=== PATIENT | male | born 1935 | race Caucasian/White ===

== ENCOUNTER 2019-10-30 13:09 | Inpatient (IN) | payer MEDICARE, MEDICAID, SELFPAY ==
[2019-10-30] VITALS (8 sets, daily range): BP systolic 106–143; BP diastolic 57–91; PULSE 90–112; RESP 18–24; TEMP 37.3–37.5; O2SAT 28–100; BMI 30.7
--- NOTE | ~2019-10-30 | XR_ITS ---
EXAMINATION: XR chest 2V DATE: 11/02/2019 15:40 INDICATION: Shortness of breath TECHNIQUE: AP and lateral views of the chest are obtained. COMPARISON: 11/18/2018 FINDINGS: There is chronic atelectasis and scarring in the lower lung zones. Minimal superimposed air space opacity is seen in the mid and lower lung zones. There is no pleural effusion or pneumothorax. The heart size is normal. 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 IMPRESSION: 1. Minimal airspace opacity of the mid and lower lung zones, consistent with atelectasis versus pneum onia. Reviewed, dictated and finalized at location A. IMPRESSION: 1. Minimal airspace opacity of the mid and lower lung zones, consistent with at electasis versus pneumonia.
--- NOTE | 2019-10-30 13:23 | ED.MALEGU ---
HPI - Male Genitourinary General Chief complaint: Urogenital-Male Stated complaint: pain in groin Time Seen by Provider: 10/30/19 13:19 Source: patient and RN notes reviewed Mode of arrival: EMS Limitations: no limitations History of Present Illness HPI Narrative: Pt is a 84 y/o male who presents to the ED via EMS from [facility] with c/o Roberts catheter complications starting 2 days ago. He notes that he has had a chronic Roberts catheter in place for roughly the past 6 years. Pt states that he last had his catheter replaced 5 weeks ago. He notes that he developed suprapubic pain 2 days ago, and states that his Roberts catheter is clogged. Pt denies any fever or chills. MD Complaint: other (Roberts catheter complications) Onset (ago): day(s) (2) Context: indwelling catheter Associated symptoms: Reports other (suprapubic pain) Related Data Home Medications Medication Instructions Recorded Confirmed No Home Medications 10/30/19 10/30/19 Allergies Allergy/AdvReac Type Severity Reaction Status Date / Time No Known Allergies Allergy Unverified 10/30/19 13:17 Review of Systems Review of Systems: All systems reviewed & are unremarkable except as noted in HPI and below Constitutional: Constitutional: Denies chills and Denies fever(s) Gastrointestinal: Gastrointestinal: Reports abdominal pain (suprapubic pain) Genitourinary: Genitourinary: Reports other (clogged Roberts catheter) PMFSH Past Medical History Medical History Anemia Anxiety Brain injury CAD (coronary artery disease) Depression Roberts catheter in place HLD (hyperlipidemia) Influenza A Surgical History Surgical History Hx of cardiac catheterization Hx of heart artery stent Family History Family History (Updated 10/24/18 @ 13:59 by DOCTOR UNKNOWN) Grandparent Family history of cardiovascular disease Cerebrovascular accident Mother Family history of pancreatic cancer Social History Social History Smoking status: Never smoker Alcohol intake: never Gender identity (if verbalized by the patient): Male Exam Narrative: Exam Narrative: General appearance: Well-developed, well-nourished Skin: Normal color Head: Normocephalic, nontraumatic Eyes: Clear conjunctiva ENT: Oropharynx normal, ears normal, nose normal Neck: Supple, nontender Chest and respiratory: Airway patent, no respiratory distress, no accessory muscle use Heart: Regular rate/rhythm Abdomen: Soft, mild suprapubic tenderness, no organomegaly, quiet bowel sounds Vascular: Normal peripheral pulses, normal capillary refill. Musculoskeletal: Normal range of motion, nontender back Neurologic: Alert and oriented ?3, WATER CONSERVATION SPECIALIST is normal as tested, no gross motor deficit Course Course Emergency Course: Improving Consultations Consultation #1: Discussed case with STREET SUPERVISOR to hospitalist, Rachel Murray. Accepted admission to Dr. Euceda. Date: 10/30/19 Time: 15:31 Vital Signs Vital signs: Vital Signs Temperature 37.5 C 10/30/19 13:09 Pulse Rate 112 H 10/30/19 13:09 Respiratory Rate 18 10/30/19 13:09 Blood Pressure 143/91 H 10/30/19 13:09 Pulse Oximetry 97 10/30/19 13:09 Temperature 37.5 C 10/30/19 13:09 Pulse Rate 102 H 10/30/19 15:43 Respiratory Rate 22 H 10/30/19 15:43 Blood Pressure 117/68 10/30/19 15:43 Pulse Oximetry 100 10/30/19 15:43 MDM - Male Genitourinary MDM Narrative Medical decision making narrative: Suprapubic tenderness, urine is not flowing through the catheter tube as usual, Roberts catheter changed
[2019-10-30 13:52] LABS: Basophils Absolute Auto 0.1 K/mm3 (0.0-0.1); Basophils Percent Auto 0.3 % (0.2-1.2); Hematocrit 35.8 % (42.0-52.0); Hemoglobin 11.1 g/dL (14.0-18.0); Immature Granulocyte Absolute 0.11 K/mm3 (0.00-0.031); Immature Granulocyte Percent A 0.5 % (0-0.5); Lymphocytes Absolute Auto 2.46 K/mm3 (0.9-3.2); Lymphocytes Percent Auto 12.1 % (18.3-44.2); Mean Corpuscular Volume 90.4 fl (80-100); Mean Platelet Volume 9.5 fl (7.4-10.4); Monocytes Absolute Auto 2.4 K/mm3 (0.1-0.6); Neutrophils Absolute Auto 15.2 K/mm3 (1.3-6.7); Neutrophils Percent Auto 75.1 % (45.5-73.1); Platelet Count Result 374 k/mm3 (150-375); Red Blood Count 3.96 M/mm3 (4.6-6.20); Red Cell Distribution Width 14.5 % (11.5-14.5); White Blood Count 20.3 K/mm3 (4.5-10.0)
--- NOTE | 2019-10-30 14:01 | PC.NURSE ---
Ardon cath that pt arrived with removed at this time and replaced with an 18 [place] ardon. Old catheter appeared discolored. Ardon draining well at time of insertion.
[2019-10-30 14:25] LABS: Alanine Aminotransferase 16 U/L (4-50); Albumin Level 3.7 g/dL (3.5-5.1); Alkaline Phosphatase 107 U/L (38-126); Aspartate Amino Transferase 26 U/L (17-59); Bilirubin,Total 0.3 mg/dL (0.2-1.3); Blood Urea Nitrogen 33 mg/dL (9-20); Calcium 8.8 mg/dL (8.4-10.2); Carbon Dioxide 22 mmol/L (22-30); Chloride 107 mmol/L (98-107); Estimated CRCL calculation 24 ml/min; Estimated Glomerular Filt Rate 26; Glucose 109 mg/dL (75-110); Potassium 4.7 mmol/L (3.4-5.0); Sodium 138 mmol/L (137-145)
[2019-10-30 14:38] LABS: Add Urine Microscopic? YES; Appearance Urine Turbid (Clear); Bacteria Urine 1+ /hpf; Bilirubin Urine Negative (Negative); Blood Urine 1+ (Negative); Color Urine Yellow (Yellow); Glucose Urine UA Negative (Negative); Ketones Urine Negative (Negative); Leukocyte Esterase Ur 3+ LEU/UL (Negative); Mucus Urine Rare /lpf; Nitrate Urine Positive (Negative); Protein Urine 2+ mg/dL (Negative); RBC Urine 21-50 /hpf (0-2); Specific Grav Ur 1.013 (1.001-1.035); Urobilinogen Urine Negative mg/dL (<2.0); WBC Urine >75 /hpf
[2019-10-30 15:55] LABS: Lactic Acid 1.7 mmol/L (0.7-2.1)
--- NOTE | 2019-10-30 16:34 | PC.NURSE ---
Attempted to call report, RN asking for more time to review sbar, will call back.
--- NOTE | 2019-10-30 17:30 | ADMGEN ---
This patient, Shai Anderson, was admitted to 2 Medical Room 260-. Patient/family oriented to hospital policies and general routines including ID bracelet, bed and alarms, visiting hours, pain management, procedures, bathroom and other care routines, personal items, smoking policy, room service/diet, and visiting hours. Valuables list has been completed. Information on how to activate the Rapid Response Team has been discussed. Patient/Family are encouraged to report perceived risks to care and to ask questions if they do not understand what they are told or what they should do.
--- NOTE | 2019-10-30 17:30 | PC.NURSE ---
Patient to be seen by Rachel Marquez NP. for documented infection. She will evaluate sepsis risk.
[2019-10-30] MEDS: SODIUM CHLORIDE 0.9% IV 1,000 ML 75 ML IV CONT (19:24)
--- NOTE | 2019-10-30 21:27 | PM.IMHP ---
H&P: HPI History of Present Illness Chief complaint: Catheter related urinary tract infection Narrative: This is an 84 year old male with known history of chronic indwelling ardon catheter and how presented to the hospital today with a complaint of his catheter clogging up 2 days ago. He has had increased suprapubic pressure and discomfort since then. The patient cannot tell me exactly why he has had a chronic indwelling ardon for the past 6 years. His catheter was last changed about 1 month ago. Tonight he believes he might had had fever over the past 2 days but he's not sure. He denies any chest pain, cough, sore throat, wheezing, nausea, vomiting, diarrhea or rectal bleeding. The patient was evaluated in the ER tonight and had his urinary catheter changed. He was found to have an elevated WBC count of 20,300 and his urinalysis was grossly abnormal. The patient was also found to be in acute renal failure with a Cr of 2.4. His baseline Cr appears to be around 1.4-1.7. He has been started on IV antibiotics and admitted to the hospital for further care. No other complaints. Review of Systems Review of Systems: All systems reviewed & are unremarkable except as noted in HPI and below PMFSH Past Medical History Medical History Anemia Anxiety Brain injury CAD (coronary artery disease) Depression Ardon catheter in place HLD (hyperlipidemia) Influenza A Surgical History Surgical History Hx of cardiac catheterization Hx of heart artery stent Family History Family History Grandparent Family history of cardiovascular disease Cerebrovascular accident Mother Family history of pancreatic cancer Father Family history of pancreatic cancer Social History Social History Smoking status: Never smoker Alcohol intake: never Substance use: never Substance use type: does not use Gender identity (if verbalized by the patient): Male Spiritual care concerns: No Agree to blood products: Yes Meds Home Medications and Allergies Home Medications Medication Instructions Recorded Confirmed Type No Home Medications 10/30/19 10/30/19 History Allergies Allergy/AdvReac Type Severity Reaction Status Date / Time No Known Allergies Allergy Unverified 10/30/19 13:17 Vital Signs Vital Signs - 24 hr 10/30/19 13:09 10/30/19 14:46 10/30/19 15:43 Temperature 37.5 C Pulse Rate 112 H 105 H 102 H Respiratory Rate 18 22 H 22 H Blood Pressure 143/91 H 129/67 117/68 Pulse Oximetry 97 97 100 10/30/19 16:35 10/30/19 16:51 10/30/19 18:54 Temperature 37.4 C Pulse Rate 109 H 108 H 90 Respiratory Rate 18 24 H 18 Blood Pressure 117/68 117/68 143/79 H Pulse Oximetry 28 L 100 98 10/30/19 21:14 Temperature 37.5 C Pulse Rate 112 H Respiratory Rate 20 Blood Pressure 139/65 Pulse Oximetry 99 Exam Const: General: cooperative, healthy appearing, alert and awake Nutritional Appearance: well nourished Orientation/consciousness: patient oriented x3 HENMT: Head: normal to inspection General nose exam: Normal external nose present Face and sinus: normal facial exam Mouth: Yes Normal oral and palatal mucosa present and Yes oropharynx normal Eyes: Pupils: Equal, round and reactive pupils present EOM: EOMs intact bilaterally Neck: Neck: supple and no JVD Thyroid: thyroid normal Lymphatic: lymphadenopathy not noted Resp: Effort & Inspection: normal respiratory effort Auscultation: clear to auscultation bilaterally Cardio: Rate: tachycardic Rhythm: regular rhythm Heart sounds: no murmurs GI: Inspection: normal to inspection Auscultation: normal bowel sounds : Other: Urinary catheter in place Skin: General skin exam: normal color and other (sacral rash+) Neuro: General: patien
[2019-10-31 05:24] LABS: Basophils Absolute Auto 0.1 K/mm3 (0.0-0.1); Basophils Percent Auto 0.4 % (0.2-1.2); Eosinophils Percent Auto 0.2 % (0-4.4); Hematocrit 28.2 % (42.0-52.0); Hemoglobin 9.1 g/dL (14.0-18.0); Immature Granulocyte Absolute 0.07 K/mm3 (0.00-0.031); Immature Granulocyte Percent A 0.4 % (0-0.5); Lymphocytes Absolute Auto 2.83 K/mm3 (0.9-3.2); Lymphocytes Percent Auto 18.1 % (18.3-44.2); Mean Corpuscular HGB Conc 32.3 g/dl (32-36); Mean Corpuscular Hemoglobin 28.1 pg (26-34); Mean Platelet Volume 8.9 fl (7.4-10.4); Monocytes Absolute Auto 1.5 K/mm3 (0.1-0.6); Monocytes Percent Auto 9.6 % (2.6-8.5); Neutrophils Absolute Auto 11.1 K/mm3 (1.3-6.7); Neutrophils Percent Auto 71.3 % (45.5-73.1); Platelet Count Result 286 k/mm3 (150-375); Red Blood Count 3.24 M/mm3 (4.6-6.20); Red Cell Distribution Width 13.9 % (11.5-14.5); White Blood Count 15.6 K/mm3 (4.5-10.0)
[2019-10-31 05:39] LABS: Blood Urea Nitrogen 31 mg/dL (9-20); Calcium 7.8 mg/dL (8.4-10.2); Carbon Dioxide 22 mmol/L (22-30); Chloride 111 mmol/L (98-107); Estimated CRCL calculation 26 ml/min; Estimated Glomerular Filt Rate 29; Glucose 104 mg/dL (75-110); Potassium 4.7 mmol/L (3.4-5.0); Sodium 136 mmol/L (137-145)
[2019-10-31 06:30] VITALS: BP 172/73; PULSE 89; RESP 18; TEMP 37.2; O2SAT 97
[2019-10-31 08:15] VITALS: BP 132/78
[2019-10-31] MEDS: SODIUM CHLORIDE 0.9% IV 1,000 ML 75 ML IV CONT (08:16)
[2019-10-31 14:00] VITALS: BP 120/60; PULSE 81; RESP 20; TEMP 37.1; O2SAT 98
--- NOTE | 2019-10-31 14:58 | PM.IMPN ---
Progress Note: A&P Assessment and Plan (1) Complicated UTI (urinary tract infection): Code(s): N39.0 - Urinary tract infection, site not specified Status: Acute Assessment and Plan: -----Due to chronic catheter. UA suspicious for UTI but awaiting culture. Last few cultures in the system grew ecoli that was susceptible to ceftriaxone. Will await urine culture at this time. Urinary catheter has been changed. (2) Sepsis: Qualifiers: Sepsis type: sepsis due to unspecified organism Sepsis acute organ dysfunction status: with acute organ dysfunction Severe sepsis acute organ dysfunction type: acute renal failure Acute renal failure type: unspecified Severe sepsis shock status: without septic shock Qualified Code(s): A41.9 - Sepsis, unspecified organism; R65.20 - Severe sepsis without septic shock; N17.9 - Acute kidney failure, unspecified Code(s): A41.9 - Sepsis, unspecified organism Status: Acute Assessment and Plan: ----w/ tachycardia, tachypnea, leukocytosis. Source of sepsis appears to be urinary. Continue IV antibiotic as stated above. Monitor vital signs and urine output closely. Urine and blood cultures pending. (3) Acute renal failure: Qualifiers: Acute renal failure type: unspecified Qualified Code(s): N17.9 - Acute kidney failure, unspecified Code(s): N17.9 - Acute kidney failure, unspecified Status: Acute Assessment and Plan: -----Likely postrenal from urinary obstruction. Monitor renal function. Continue IV hydration as of now. No signs of fluid overload. Monitor urine output. Avoid nephrotoxic agents, renally dose medications. Consider Nephrology consultation if renal function does not improve tomorrow (4) Leukocytosis: Qualifiers: Leukocytosis type: unspecified Qualified Code(s): D72.829 - Elevated white blood cell count, unspecified Code(s): D72.829 - Elevated white blood cell count, unspecified Status: Acute Assessment and Plan: -----secondary to UTI - Monitor CBCd. (5) Normocytic anemia: Code(s): D64.9 - Anemia, unspecified Status: Chronic Assessment and Plan: -----Likely anemia of chronic disease. No signs of acute blood loss. Monitor H/H, transfuse prn. (6) Medical non-compliance: Code(s): Z91.19 - Patient's noncompliance with other medical treatment and regimen Status: Acute Assessment and Plan: -----Pt is no longer any medications since he left the assisted living and says 'he doesn't need them'. I will call Dr. Coles tomorrow and discuss with him. 08/21/18 he was discharged on Plavix, nortriptyline, metoprolol succinate, furosemide, atorvastatin and aspirin. He claims he has never had a heart attack or heart disease. Time Spent With Patient Time with patient: 25 - 35 minutes Subjective Date/time seen: 10/31/19 14:58 Interval history: Pt is a 84 y/o male here for UTI sepsis. Pt was seen today and says he is still having fevers and chills. His abdominal pain has resolved and his catheter is draining better. He denies CP, SOB, n, v, diarrhea and constipation. He is eating and drinking well. he feels better today but not at his baseline. He says his legs are always red and painful. He also says that he quit taking all of his medications after he left assisted living. he sees Dr. Coles in [place] occasionally as his pcp. Review of Systems Review of Systems: All systems reviewed & are unremarkable except as noted in HPI and below Exam Narrative: Exam Narrative: General: Well developed well nourished patient resting in bed in [facility] HEENT: normocephalic Neck: supple Neuro: Alert and oriented x4 CV:RRR Resp:CTA Abd: Soft, non distended. No pain to palpation. Positive bowel sounds. Catheter with yellow urine and draining well. Extremities: Erythema and pain to palpation to both lower extremities. Serous drainage noted on
[2019-10-31] MEDS: SODIUM CHLORIDE 0.9% IV 1,000 ML 100 ML IV CONT (19:36)
[2019-10-31 22:46] VITALS: BP 117/60; PULSE 73; RESP 16; TEMP 36.8; O2SAT 97
[2019-11-01 05:30] LABS: Alanine Aminotransferase 18 U/L (4-50); Albumin Level 2.7 g/dL (3.5-5.1); Alkaline Phosphatase 70 U/L (38-126); Aspartate Amino Transferase 30 U/L (17-59); Bilirubin,Total 0.1 mg/dL (0.2-1.3); Blood Urea Nitrogen 29 mg/dL (9-20); Calcium 7.6 mg/dL (8.4-10.2); Carbon Dioxide 22 mmol/L (22-30); Chloride 115 mmol/L (98-107); Estimated CRCL calculation 32 ml/min; Estimated Glomerular Filt Rate 36; Glucose 96 mg/dL (75-110); Potassium 4.2 mmol/L (3.4-5.0); Sodium 140 mmol/L (137-145)
[2019-11-01 05:31] LABS: Hematocrit 27.9 % (42.0-52.0); Mean Corpuscular HGB Conc 32.3 g/dl (32-36); Mean Corpuscular Hemoglobin 28.4 pg (26-34); Mean Platelet Volume 9.1 fl (7.4-10.4); Platelet Count Result 290 k/mm3 (150-375); Red Blood Count 3.17 M/mm3 (4.6-6.20); Red Cell Distribution Width 13.6 % (11.5-14.5); White Blood Count 12.2 K/mm3 (4.5-10.0)
[2019-11-01] MEDS: SODIUM CHLORIDE 0.9% IV 1,000 ML 100 ML IV CONT (05:52)
[2019-11-01 06:01] VITALS: BP 139/64; PULSE 80; RESP 16; TEMP 37.1; O2SAT 96
[2019-11-01] MEDS: BETAMETHASONE/CLOTRIMAZOLE CR 15 GM TUBE 1 APPLIC TOPICAL ×2 (10:44→21:00)
--- NOTE | 2019-11-01 13:59 | PM.IMPN ---
Progress Note: A&P Assessment and Plan (1) Complicated UTI (urinary tract infection): Code(s): N39.0 - Urinary tract infection, site not specified Status: Acute Assessment and Plan: -----Due to chronic catheter. UA suspicious for UTI and culture is growing 3 or more organisms greater than 10,000. Because of his significant infection, I have asked the lab to grow it out. The microbiology lab manager says she thinks it is Proteus and Pseudomonas but will officially grow it out and will get sensitivities. Last few cultures in the system grew ecoli that was susceptible to ceftriaxone. Since his symptoms and white count are better, we will continue with current treatment. (2) Sepsis: Qualifiers: Sepsis type: sepsis due to unspecified organism Sepsis acute organ dysfunction status: with acute organ dysfunction Severe sepsis acute organ dysfunction type: acute renal failure Acute renal failure type: unspecified Severe sepsis shock status: without septic shock Qualified Code(s): A41.9 - Sepsis, unspecified organism; R65.20 - Severe sepsis without septic shock; N17.9 - Acute kidney failure, unspecified Code(s): A41.9 - Sepsis, unspecified organism Status: Acute Assessment and Plan: ----initially w/ tachycardia, tachypnea, leukocytosis. Source of sepsis appears to be urinary. Continue IV antibiotic as stated above. Monitor vital signs and urine output closely. Urine and blood cultures NGTD (3) Acute renal failure: Qualifiers: Acute renal failure type: unspecified Qualified Code(s): N17.9 - Acute kidney failure, unspecified Code(s): N17.9 - Acute kidney failure, unspecified Status: Acute Assessment and Plan: -----Likely postrenal from urinary obstruction. His baseline ranges from 1.5-1.8 and today it is 1.8 so I will stop the fluids. (4) Leukocytosis: Qualifiers: Leukocytosis type: unspecified Qualified Code(s): D72.829 - Elevated white blood cell count, unspecified Code(s): D72.829 - Elevated white blood cell count, unspecified Status: Acute Assessment and Plan: ------secondary to UTI - Monitor CBC (5) Normocytic anemia: Code(s): D64.9 - Anemia, unspecified Status: Chronic Assessment and Plan: -----Likely anemia of chronic disease. No signs of acute blood loss. Monitor H/H, transfuse prn. (6) Medical non-compliance: Code(s): Z91.19 - Patient's noncompliance with other medical treatment and regimen Status: Acute Assessment and Plan: -----Pt is no longer any medications since he left the assisted living and says 'he doesn't need them'. I paged Dr. Coles today and to discuss this with him but he did not get back to me. I will try again tomorrow. 08/21/18 he was discharged on Plavix, nortriptyline, metoprolol succinate, furosemide, atorvastatin and aspirin. He claims he has never had a heart attack or heart disease. Additional Plan Subjective Date/time seen: 11/01/19 13:59 Interval history: Pt is a 84 y/o male here for UTI sepsis. Patient was seen today and says he is doing a lot better. He is not having any abdominal pain, fevers or chills. He is eating and drinking well. He denies chest pain, shortness of breath, diarrhea, constipation, or leg swelling. Exam Narrative: Exam Narrative: General: Well developed well nourished patient resting in bed in [place] HEENT: normocephalic Neck: supple Neuro: Alert and oriented x4 CV:RRR Resp:CTA Abd: Soft, non distended. No pain to palpation. Positive bowel sounds. Catheter with yellow urine and draining well. Extremities: Erythema and pain to palpation to both lower extremities. Serous drainage noted on the bed. Objective Data Vital Signs Vital Signs: Vital Signs - 24 hr 10/31/19 14:00 10/31/19 22:46 11/01/19 06:01 Temperature 98.7 F 98.2 F 98.8 F Pulse Rate 81 73 80 Respiratory Rate 20 16 16 Blood Pre
[2019-11-01 14:05] VITALS: BP 111/54; PULSE 78; RESP 19; TEMP 37.2; O2SAT 98
[2019-11-01 22:00] VITALS: BP 115/59; PULSE 65; RESP 20; TEMP 36.7; O2SAT 98
[2019-11-02 05:40] LABS: Hematocrit 27.2 % (42.0-52.0); Hemoglobin 8.6 g/dL (14.0-18.0); Mean Corpuscular HGB Conc 31.6 g/dl (32-36); Mean Corpuscular Hemoglobin 28.2 pg (26-34); Mean Corpuscular Volume 89.2 fl (80-100); Mean Platelet Volume 9.1 fl (7.4-10.4); Platelet Count Result 277 k/mm3 (150-375); Red Blood Count 3.05 M/mm3 (4.6-6.20); Red Cell Distribution Width 13.6 % (11.5-14.5); White Blood Count 10.2 K/mm3 (4.5-10.0)
[2019-11-02 05:52] LABS: Blood Urea Nitrogen 25 mg/dL (9-20); Calcium 7.6 mg/dL (8.4-10.2); Carbon Dioxide 21 mmol/L (22-30); Chloride 113 mmol/L (98-107); Estimated CRCL calculation 38 ml/min; Estimated Glomerular Filt Rate 45; Glucose 84 mg/dL (75-110); Potassium 4.2 mmol/L (3.4-5.0); Sodium 137 mmol/L (137-145)
[2019-11-02 06:00] VITALS: BP 116/59; PULSE 71; RESP 20; TEMP 36.7; O2SAT 98
[2019-11-02] MEDS: BETAMETHASONE/CLOTRIMAZOLE CR 15 GM TUBE 1 APPLIC TOPICAL ×2 (12:16→20:49)
[2019-11-02 14:00] VITALS: BP 115/74; PULSE 86; RESP 18; TEMP 37.4; O2SAT 99
--- NOTE | 2019-11-02 15:16 | PM.IMPN ---
Progress Note: A&P Assessment and Plan (1) Complicated UTI (urinary tract infection): Code(s): N39.0 - Urinary tract infection, site not specified Status: Acute Assessment and Plan: -----Due to chronic catheter. UA suspicious for UTI and culture is growing 3 or more organisms greater than 10,000. Because of his significant infection, I have asked the lab to grow it out. The photo lab manager says she thinks it is Proteus and Pseudomonas but will officially grow it out and will get sensitivities. Last few cultures in the system grew ecoli that was susceptible to ceftriaxone. Since his symptoms and white count are better, we will continue with current treatment. (2) Sepsis: Qualifiers: Sepsis type: sepsis due to unspecified organism Sepsis acute organ dysfunction status: with acute organ dysfunction Severe sepsis acute organ dysfunction type: acute renal failure Acute renal failure type: unspecified Severe sepsis shock status: without septic shock Qualified Code(s): A41.9 - Sepsis, unspecified organism; R65.20 - Severe sepsis without septic shock; N17.9 - Acute kidney failure, unspecified Code(s): A41.9 - Sepsis, unspecified organism Status: Acute Assessment and Plan: ----initially w/ tachycardia, tachypnea, leukocytosis. Source of sepsis appears to be urinary. Continue IV antibiotic as stated above. Monitor vital signs and urine output closely. Urine and blood cultures NGTD (3) Acute renal failure: Qualifiers: Acute renal failure type: unspecified Qualified Code(s): N17.9 - Acute kidney failure, unspecified Code(s): N17.9 - Acute kidney failure, unspecified Status: Acute Assessment and Plan: -----Likely postrenal from urinary obstruction. His baseline ranges from 1.5-1.8 and today it is 1.5. Fluids were discontinued 10/31. (4) Leukocytosis: Qualifiers: Leukocytosis type: unspecified Qualified Code(s): D72.829 - Elevated white blood cell count, unspecified Code(s): D72.829 - Elevated white blood cell count, unspecified Status: Acute Assessment and Plan: ------secondary to UTI - Monitor CBC (5) Normocytic anemia: Code(s): D64.9 - Anemia, unspecified Status: Chronic Assessment and Plan: -----Likely anemia of chronic disease. No signs of acute blood loss. Monitor H/H, transfuse prn. (6) Medical non-compliance: Code(s): Z91.19 - Patient's noncompliance with other medical treatment and regimen Status: Acute Assessment and Plan: -----Pt is no longer any medications since he left the assisted living and says 'he doesn't need them'. I paged Dr. Coles today and to discuss this with him but he did not get back to me. I will try again tomorrow. 08/21/18 he was discharged on Plavix, nortriptyline, metoprolol succinate, furosemide, atorvastatin and aspirin. He claims he has never had a heart attack or heart disease. Additional Plan Patient has complaints of shortness of breath today. Will obtain chest x-ray and give a 1 time breathing treatment since all I hear is wheezing. He does not need o2 at this time and is at 99%. However, the history sounds like it could also be hypovolemia d/t t fluids earlier in the stay. Will await chest x-ray before administering Lasix since his FANNY just resolved. Subjective Date/time seen: 11/02/19 15:16 Interval history: Pt is a 84 y/o male here for UTI sepsis. Patient was seen today and states that he feels little short of breath. He said this started earlier today and is unusual for him. He does have a cough but normally has a chronic cough and this has not changed. He says when he sitting up in the commode he does not have shortness of breath but when he is laying back in bed he feels little short of breath. He says he usually sleeps in a recliner at home and does not do well in the bed. He has had no chest pain or fevers with thi
[2019-11-02] MEDS: ALBUTEROL SULFATE NEB 2.5 MG/0.5 ML INH 5 MG INHALATION (15:54)
[2019-11-02 15:55] VITALS: PULSE 76; RESP 20
[2019-11-02] MEDS: ALBUTEROL SULFATE (*SP) AEROSOL 1 PUFF 2 PUFF INHALATION (19:29)
[2019-11-02] MEDS: AZITHROMYCIN 250 MG TABLET 500 MG PO (20:50)
[2019-11-02 22:00] VITALS: BP 113/57; PULSE 80; RESP 21; TEMP 37; O2SAT 100
[2019-11-03 05:15] LABS: Hematocrit 28.4 % (42.0-52.0); Hemoglobin 8.9 g/dL (14.0-18.0); Mean Corpuscular HGB Conc 31.3 g/dl (32-36); Mean Corpuscular Volume 89.3 fl (80-100); Mean Platelet Volume 9.1 fl (7.4-10.4); Platelet Count Result 306 k/mm3 (150-375); Red Blood Count 3.18 M/mm3 (4.6-6.20); Red Cell Distribution Width 13.5 % (11.5-14.5); White Blood Count 9.7 K/mm3 (4.5-10.0)
[2019-11-03 05:23] LABS: Blood Urea Nitrogen 25 mg/dL (9-20); Calcium 7.7 mg/dL (8.4-10.2); Carbon Dioxide 21 mmol/L (22-30); Chloride 113 mmol/L (98-107); Estimated CRCL calculation 38 ml/min; Estimated Glomerular Filt Rate 45; Glucose 85 mg/dL (75-110); Potassium 4.6 mmol/L (3.4-5.0); Sodium 139 mmol/L (137-145)
[2019-11-03 06:00] VITALS: BP 123/59; PULSE 72; RESP 20; TEMP 37; O2SAT 98
[2019-11-03] MEDS: ALBUTEROL SULFATE (*SP) AEROSOL 1 PUFF 2 PUFF INHALATION ×2 (08:16→12:27)
[2019-11-03] MEDS: BETAMETHASONE/CLOTRIMAZOLE CR 15 GM TUBE 1 APPLIC TOPICAL (08:38)
[2019-11-03] MEDS: polyethylene glycoL 3350 17 GM POWD.PACK PO (08:38)
[2019-11-03] MEDS: AZITHROMYCIN 250 MG TABLET PO (08:38)
[2019-11-03] MEDS: ENOXAPARIN 40 MG/0.4 ML SYRINGE SUB-Q (08:38)
[2019-11-03 14:00] VITALS: BP 114/61; PULSE 78; RESP 18; TEMP 37.1; O2SAT 98
--- NOTE | 2019-11-03 14:27 | PM.DS ---
DS: Diagnosis Admitting Diagnosis Admitting Diagnosis: Infection and inflammatory reaction due to indwelling urethral catheter, initial encounter Discharge Diagnosis (1) Complicated UTI (urinary tract infection): Code(s): N39.0 - Urinary tract infection, site not specified Status: Acute (2) Sepsis: Qualifiers: Sepsis type: sepsis due to unspecified organism Sepsis acute organ dysfunction status: with acute organ dysfunction Severe sepsis acute organ dysfunction type: acute renal failure Acute renal failure type: unspecified Severe sepsis shock status: without septic shock Qualified Code(s): A41.9 - Sepsis, unspecified organism; R65.20 - Severe sepsis without septic shock; N17.9 - Acute kidney failure, unspecified Code(s): A41.9 - Sepsis, unspecified organism Status: Acute (3) Acute renal failure: Qualifiers: Acute renal failure type: unspecified Qualified Code(s): N17.9 - Acute kidney failure, unspecified Code(s): N17.9 - Acute kidney failure, unspecified Status: Acute (4) Leukocytosis: Qualifiers: Leukocytosis type: unspecified Qualified Code(s): D72.829 - Elevated white blood cell count, unspecified Code(s): D72.829 - Elevated white blood cell count, unspecified Status: Acute (5) Normocytic anemia: Code(s): D64.9 - Anemia, unspecified Status: Chronic (6) Medical non-compliance: Code(s): Z91.19 - Patient's noncompliance with other medical treatment and regimen Status: Acute Assessment and Plan: -----Pt is no longer any medications since he left the assisted living and says 'he doesn't need them'. I paged Dr. Coles and called his office and his office staff did not return my call. 08/21/18 he was discharged on Plavix, nortriptyline, metoprolol succinate, furosemide, atorvastatin and aspirin. He claims he has never had a heart attack or heart disease. DS: Summary Hospital Course Reason for hospitalization: UTI Hospital Course: Patient is an 84-year-old male with a chronic Roberts catheter who presented to the emergency room for abdominal pain and clotting of his Roberts catheter. White blood cell count 20.3, hemoglobin 11.1, hematocrit 35.8, platelets 374. BMP shows FANNY with a creatinine at 2.4 as his baseline is usually around 1.5. Vitals were stable in the ER. UA was grossly abnormal and patient was admitted to the hospitalist service and placed on ceftriaxone and his Roberts catheter was changed. His white blood cell count and symptoms improved with treatment. The day of discharge his white blood cell count was normal at 9.7. His urine culture grew out 3 or more organisms greater than 10,000 no testing required. I called microbiology who said they were going to grow out the urine and since sensitivities. I spoke to them 3 times but as of date it is not back yet. We will continue monitoring it until it is back. With that being said, the patient's symptoms and white blood cell count improved with the ceftriaxone so I suspect the infection is adequately treated with those antibiotics and will likely not be changed unless the patient has further symptoms. During his stay the patient had shortness of breath and a chest x-ray was done which showed atelectasis versus pneumonia. He was started on azithromycin with his ceftriaxone and was given 5 days total at discharge. The patient has a history of medical noncompliance and as stated above, he is not on any home medications it appears that he should be. I called his primary care physician multiple times without any return of a phone call. I spoke to the patient about all the medications he was on last time he was here at the hospital and he said he does not need them anymore and quit taking them when he got out of the alf. He agreed to restart aspirin but that was it. I explained that he is on any heart medication needs to talk to his primary about the importanc
--- NOTE | 2019-11-08 13:33 | PC.NURSE ---
Blood cx is negative.
== END 2019-11-03 14:45 | disposition home or self-care (01) | DRG 698 ==
LOC: ANHED 16:36 → ANH2MED 16:42
PROVIDERS: Physician Assistant; Admitting Provider Family Medicine; Emergency Provider Emergency Medicine; Visit Provider Family Medicine
DX: T83.511A Infection and inflammatory reaction due to indwelling urethral catheter, initial encounter (principal); A41.9 Sepsis, unspecified organism; R65.20 Severe sepsis without septic shock; N17.9 Acute kidney failure, unspecified; N39.0 Urinary tract infection, site not specified; D72.829 Elevated white blood cell count, unspecified; D64.9 Anemia, unspecified; F41.8 Other specified anxiety disorders; I25.10 Atherosclerotic heart disease of native coronary artery without angina pectoris; E78.5 Hyperlipidemia, unspecified; Z91.19 Patient's noncompliance with other medical treatment and regimen; Z95.5 Presence of coronary angioplasty implant and graft
CPT/HCPCS: 36415; 71046; 80048; 80053; 81001; 83605; 85025; 85027; 87040; 87086; 87088; 94640; 96365; 97110; 97116; 97161; 97165; 97535; 99285; A9270; J0696; J1650; J7030

== ENCOUNTER 2020-02-14 09:33 | Outpatient (CLI) | payer MEDICARE, MEDICAID, SELFPAY ==
[2020-02-14 13:28] LABS: Alanine Aminotransferase 21 U/L (4-50); Albumin Level 3.8 g/dL (3.5-5.1); Alkaline Phosphatase 108 U/L (38-126); Aspartate Amino Transferase 27 U/L (17-59); Bilirubin,Total 0.3 mg/dL (0.2-1.3); Blood Urea Nitrogen 25 mg/dL (9-20); Calcium 8.4 mg/dL (8.4-10.2); Carbon Dioxide 24 mmol/L (22-30); Chloride 104 mmol/L (98-107); Estimated Glomerular Filt Rate 39; Glucose 102 mg/dL (75-110); Potassium 4.4 mmol/L (3.4-5.0); Sodium 137 mmol/L (137-145)
== END 2020-02-14 09:34 | disposition home or self-care (01) ==
PROVIDERS: PCP Internal Medicine; Visit Provider Internal Medicine
DX: R79.9 Abnormal finding of blood chemistry, unspecified (principal)
CPT/HCPCS: 36415; 80053

== ENCOUNTER 2020-11-28 11:34 | Outpatient (CLI) | payer MEDICARE, MEDICAID, SELFPAY ==
[2020-11-28 12:09] LABS: Basophils Absolute Auto 0.1 K/mm3 (0.0-0.1); Basophils Percent Auto 0.4 % (0.2-1.2); Eosinophils Absolute Auto 0.6 K/mm3 (0-0.3); Eosinophils Percent Auto 4.6 % (0-4.4); Immature Granulocyte Absolute 0.05 K/mm3 (0.00-0.031); Immature Granulocyte Percent A 0.4 % (0-0.5); Lymphocytes Percent Auto 24.2 % (18.3-44.2); Mean Corpuscular HGB Conc 32.4 g/dl (32-36); Mean Corpuscular Hemoglobin 27.5 pg (26-34); Mean Platelet Volume 9.6 fl (7.4-10.4); Monocytes Absolute Auto 1.2 K/mm3 (0.1-0.6); Monocytes Percent Auto 9.7 % (2.6-8.5); Neutrophils Absolute Auto 7.3 K/mm3 (1.3-6.7); Neutrophils Percent Auto 60.7 % (45.5-73.1); Platelet Count Result 278 k/mm3 (150-375); Red Cell Distribution Width 15.8 % (11.5-14.5)
[2020-11-28 12:31] LABS: Alanine Aminotransferase 25 U/L (4-50); Albumin Level 4.1 g/dL (3.5-5.1); Alkaline Phosphatase 94 U/L (38-126); Anion Gap 8 mmol/L (8-16); Aspartate Amino Transferase 31 U/L (17-59); Bilirubin,Total 0.3 mg/dL (0.2-1.3); Blood Urea Nitrogen 35 mg/dL (9-20); Calcium 8.9 mg/dL (8.4-10.2); Carbon Dioxide 29 mmol/L (22-30); Chloride 103 mmol/L (98-107); Estimated Glomerular Filt Rate 32; Glucose 86 mg/dL (75-110); Potassium 3.9 mmol/L (3.4-5.0); Sodium 140 mmol/L (137-145)
[2020-11-28 13:13] LABS: Free T4 Free Thyroxine 1.07 ng/mL (0.78-2.19)
== END 2020-11-28 11:35 | disposition home or self-care (01) ==
LOC: ANHLAB 11:42
PROVIDERS: PCP Internal Medicine; Visit Provider Internal Medicine
DX: R60.0 Localized edema (principal)
CPT/HCPCS: 36415; 80053; 84439; 84443; 85025

== ENCOUNTER 2021-05-08 11:14 | Outpatient (CLI) | payer MEDICARE, MEDICAID, SELFPAY ==
[2021-05-08 12:11] LABS: Alanine Aminotransferase 27 U/L (4-50); Albumin Level 4.1 g/dL (3.5-5.1); Alkaline Phosphatase 112 U/L (38-126); Anion Gap 9 mmol/L (8-16); Aspartate Amino Transferase 35 U/L (17-59); Bilirubin,Total 0.3 mg/dL (0.2-1.3); Blood Urea Nitrogen 35 mg/dL (9-20); Calcium 8.8 mg/dL (8.4-10.2); Carbon Dioxide 26 mmol/L (22-30); Chloride 104 mmol/L (98-107); Estimated Glomerular Filt Rate 38; Glucose 92 mg/dL (65-110); Potassium 4.4 mmol/L (3.4-5.0); Sodium 139 mmol/L (137-145)
== END 2021-05-08 11:15 | disposition home or self-care (01) ==
LOC: ANHLAB 11:21
PROVIDERS: PCP Physician Assistant; Visit Provider Physician Assistant
DX: R60.9 Edema, unspecified (principal)
CPT/HCPCS: 36415; 80053

== ENCOUNTER 2022-08-11 05:29 | Inpatient (IN) | payer OTHER, SELFPAY ==
[2022-08-11] VITALS (24 sets, daily range): BP systolic 94–128; BP diastolic 47–71; PULSE 78–113; RESP 12–30; TEMP 36.4–37; O2SAT 92–100; BMI 34.9
--- NOTE | ~2022-08-11 | US_ITS ---
EXAMINATION: US venous doppler [facility] DATE: 08/11/2022 22:22 INDICATION: pain behind knees, edema lower legs . TECHNIQUE: Grayscale images without and with compression and Doppler images of the bilateral lower ex tremity veins were obtained. COMPARISON: None FINDINGS: The right common femoral vein, profunda (deep) femoral vein, femoral vein, popliteal vein, peroneal v ein, posterior tibial veins, gastrocnemius vein, and greater saphenous vein are patent. The left common femoral vein, profunda femoral vein, femoral vein, popliteal vein, peroneal vein, pos terior tibial veins, gastrocnemius vein, and greater saphenous vein are patent. IMPRESSION: 1. Patent bilateral lower extremity veins. No evidence of deep venous thrombosis. Reviewed, dictated and finalized at location K. ECTION TECHNICIAN IMPRESSION: 1. Patent bilateral lower extremity veins. No evidence of deep venous thrombos is.
--- NOTE | ~2022-08-11 | CT_ITS ---
EXAMINATION: CT abdomen pelvis wo con DATE: 08/12/2022 08:54 INDICATION: Hematuria. Urinary tract infection. TECHNIQUE: Computed tomography (CT) of the abdomen and pelvis was performed without intravenous contr ast. Automated exposure control and iterative reconstruction technique were employed. The dose-length product was 1448.64 mGy-cm. COMPARISON: CT abdomen and pelvis 09/22/2018 FINDINGS: The visualized portions of the lung bases demonstrate mild atelectasis and chronic lung dis ease. A calcified right lung nodule is consistent with old granulomatous disease. There are trace ple ural effusions. The heart size is normal. There are coronary artery calcifications. There is a trace pericardial effusion. There is bilateral gynecomastia. The liver, spleen, pancreas, and right adrenal gland are normal. There is a chronic 11 mm mass left adrenal gland measuring low-attenuation, consis tent with an adenoma. There are cysts in the kidneys measuring up to 2.5 cm on the right. There is mi ld atrophy of the kidneys. There is a 4 mm stone in right kidney. There is focal medullary nephrocalc inosis in right kidney. Again seen is perinephric scarring adjacent to left kidney. There is a 5 mm stone in left kidney. The prostate is moderately enlarged. There is a Roberts catheter in expected posi tion. There is diverticulosis of the colon without evidence of diverticulitis. The appendix is normal . There is fat stranding in the left retroperitoneum and around the bladder and rectum, consistent wi th edema versus inflammation. There is a small sliding hiatal hernia. There is mild right external il iac lymphadenopathy. There is mild bilateral inguinal lymphadenopathy. There is lumbar dextroscoliosi s and severe spondylosis. IMPRESSION: 1. Bilateral nonobstructing kidney stones. 2. Left perinephric scarring again seen. 3. Mild right external iliac and bilateral inguinal lymphadenopathy, likely reactive. 4. Fat stranding in the left retroperitoneum and around the bladder and rectum, consistent with edema versus inflammation. Reviewed, dictated and finalized at location A. SS SERVICES ASSISTANT IMPRESSION: 1. Bilateral nonobstructing kidney stones. 2. Left perinephric scarring again seen. 3. Mild right external iliac and bilateral inguinal lymphadenopathy, likely reji ctive. 4. Fat stranding in the left retroperitoneum and around the bladder and rectum, consistent with edema versus inflammation.
--- NOTE | ~2022-08-11 | XR_ITS ---
EXAMINATION: XR chest 1V portable DATE: 08/11/2022 05:56 INDICATION: Tachycardia. TECHNIQUE: A single frontal view of the chest was obtained. COMPARISON: Chest 2 views 11/02/2019, CT abdomen and pelvis 09/22/2018 FINDINGS: The lung volumes are small. There is mild atelectasis versus scarring in the lower lung zon es. No pleural effusion or pneumothorax. The heart size is normal. IMPRESSION: 1. Small lung volumes with mild atelectasis versus scarring in the lower lung zones. Reviewed, dictated and finalized at location A. F INFORMATION SECURITY OFFICER IMPRESSION: 1. Small lung volumes with mild atelectasis versus scarring in the lower lung z ones.
--- NOTE | 2022-08-11 05:37 | ECG_ITS ---
Measurements Intervals [place] Rate: 100 P: MN: 0 QRS: -30 QRSD: 90 T: 15 QT: 364 QTc: 469 Interpretive Statements SINUS RHYTHM WITH FIRST DEGREE AV BLOCK LOW QRS VOLTAGE IN PRECORDIAL LEADS ANTEROSEPTAL INFARCT, AGE INDETERMINATE INFERIOR INFARCT, AGE INDETERMINATE BASELINE ARTIFACT- I, II, III, AVR, AVL, AVF, V1 ABNORMAL ECG NO PREVIOUS ECG AVAILABLE FOR COMPARISON Electronically Signed On 08-11-2022 8:07:24 LITHOGRAPHIC PRESS OPERATOR by Shane Hurtado D.O.
[2022-08-11 06:01] LABS: Basophils Percent Auto 0.2 % (0.2-1.2); Hematocrit 29.3 % (42.0-52.0); Hemoglobin 9.7 g/dL (14.0-18.0); Immature Granulocyte Absolute 0.13 K/mm3 (0.00-0.031); Immature Granulocyte Percent A 0.7 % (0-0.5); Lymphocytes Absolute Auto 1.11 K/mm3 (0.9-3.2); Lymphocytes Percent Auto 5.6 % (18.3-44.2); Mean Corpuscular HGB Conc 33.1 g/dl (32-36); Mean Corpuscular Hemoglobin 28.8 pg (26-34); Mean Corpuscular Volume 86.9 fl (80-100); Mean Platelet Volume 9.5 fl (7.4-10.4); Monocytes Absolute Auto 1.1 K/mm3 (0.1-0.6); Monocytes Percent Auto 5.3 % (2.6-8.5); Neutrophils Absolute Auto 17.6 K/mm3 (1.3-6.7); Neutrophils Percent Auto 88.2 % (45.5-73.1); Platelet Count Result 247 k/mm3 (150-375); Red Blood Count 3.37 M/mm3 (4.6-6.20); Red Cell Distribution Width 15.2 % (11.5-14.5); White Blood Count 19.9 K/mm3 (4.5-10.0)
[2022-08-11 06:11] LABS: INR 1.3
--- NOTE | 2022-08-11 06:13 | ED.ABDPAIN ---
HPI - Abdominal Pain General Chief Complaint: Urogenital-Male Stated Complaint: URINARY CATHETER PROBLEMS Time Seen by Provider: 08/11/22 05:37 History of Present Illness HPI narrative: This is an 87-year-old male with past medical history of BPH status post catheter placement, who presents to the emergency department complaining of catheter malfunction and pain. The patient states he was seen at his urologist office with replacement of his catheter yesterday. He noted some bleeding and that the catheter seem to stop working prior to arrival. He complains of moderate to significant pelvic discomfort associated with this. He also complains of mild erythema of the bilateral lower extremities and diarrhea. Related Data Allergies Allergy/AdvReac Type Severity Reaction Status Date / Time No Known Allergies Allergy Verified 04/27/22 09:51 Review of Systems Review of Systems: CONSTITUTIONAL: Denies fever, chills, or sweats. EYES: Denies visual changes, redness, or discharge. ENT: Denies rhinorrhea, congestion, sore throat, or otalgia. CARDIOVASCULAR: Denies chest pain, palpitations, or edema. RESPIRATORY: Denies cough or dyspnea. GASTROINTESTINAL: Abdominal pain denies nausea, vomiting, or diarrhea. GENITOURINARY: Hematuria with Roberts catheter malfunction denies dysuria or hematuria. SKIN: Denies rash or itching. MUSCULOSKELETAL: Denies back pain, joint pain, or myalgia. NEUROLOGIC: Denies headache, numbness, dizziness, or weakness. PSYCHIATRIC: Denies anxiety or depression. [facility] Past Medical History Medical History Anemia Anxiety Brain injury CAD (coronary artery disease) Depression Roberts catheter in place HLD (hyperlipidemia) Influenza A Surgical History Surgical History Hx of cardiac catheterization Hx of heart artery stent Family History Family History Grandparent Family history of cardiovascular disease Cerebrovascular accident Mother Family history of pancreatic cancer Father Family history of pancreatic cancer Social History Social History Smoking status: Never smoker Alcohol intake: never Substance use: never Substance use type: does not use Gender identity (if verbalized by the patient): Male Spiritual care concerns: No Agree to blood products: Yes Exam Narrative: GENERAL: Well-appearing, well-nourished, appears uncomfortable, a small amount of dried feces is noted on the feet HEAD: Normocephalic, atraumatic. EYES: PERRLA and EOMI. ENT: Nares clear, no rhinorrhea or epistaxis. Mucous membranes moist. Oropharynx without tonsillar hypertrophy exudate or other lesions CHEST: Clear to auscultation. No respiratory distress. No wheezes rales or rhonchi HEART: Tachycardic with regular rhythm. No murmur heard. Normal peripheral pulses. ABDOMEN: Soft, tender to palpation in the suprapubic region without guarding or rebound, mildly distended, normal active bowel sounds. : Roberts catheter is in place draining frankly bloody urine without clots EXTREMITIES: Normal range of motion. Bilateral lower extremity 1+ edema with erythema to the mid forelegs SKIN: Otherwise warm, dry; NEURO: No focal deficits. Strength 5/5 in all extremities, sensation intact bilaterally alert and oriented x3. PSYCH: Normal mood and affect. Course Course Emergency Course: 06:20 - White blood cell count elevated to 19. I have a high suspicion for sepsis, with a urinary source. Will treat with Rocephin. The patient's initial blood pressure was elevated. Will treat with an initial 1 L bolus of IV fluids pending lactic acid. 06:57 - Received notification from nursing staff, the patient's initial lactic acid is 4.4. Will give the full 30 cc per EKG fluid bolus. Blood pressure now decreased to 88 s
[2022-08-11 06:18] LABS: Alanine Aminotransferase 25 U/L (6-50); Albumin Level 3.4 g/dL (3.5-5.1); Alkaline Phosphatase 84 U/L (38-126); Anion Gap 9 mmol/L (8-16); Aspartate Amino Transferase 32 U/L (17-59); Bilirubin,Total 0.5 mg/dL (0.2-1.3); Blood Urea Nitrogen 30 mg/dL (9-20); Calcium 7.4 mg/dL (8.4-10.2); Carbon Dioxide 18 mmol/L (22-30); Chloride 104 mmol/L (98-107); Estimated Glomerular Filt Rate 38; Glucose 133 mg/dL (65-110); Potassium 4.2 mmol/L (3.4-5.0); Sodium 131 mmol/L (137-145)
[2022-08-11 06:39] LABS: Add Urine Microscopic? YES; Appearance Urine Cloudy (Clear); Bilirubin Urine Negative (Negative); Blood Urine 3+ (Negative); Color Urine Yellow (Yellow); Glucose Urine UA Negative (Negative); Ketones Urine Negative (Negative); Leukocyte Esterase Ur 3+ LEU/UL (Negative); Nitrate Urine Positive (Negative); Protein Urine 2+ mg/dL (Negative); Urobilinogen Urine 0.2 mg/dL (<2.0); pH Urine >=9.0 (5.0-9.0)
[2022-08-11 06:50] LABS: Bacteria Urine Trace /hpf; Mucus Urine Rare /lpf; RBC Urine >75 /hpf (0-2); WBC Urine >75 /hpf
[2022-08-11 06:57] LABS: Lactic Acid Reflex 4.4 mmol/L (0.7-2.0)
[2022-08-11] MEDS: SODIUM CHLORIDE 0.9% IV 1,000 ML 999 ML IV CONT (07:08)
[2022-08-11 07:27] LABS: Influenza A QL RT-PCR Negative (Negative); Influenza B QL RT-PCR Negative (Negative); SARS-CoV-2 RNA PCR Negative
--- NOTE | 2022-08-11 08:59 | PC.NURSE ---
Patient to receive total of 2,700mL normal saline.
[2022-08-11 09:34] LABS: Reflex Lactic Acid Yes or No Add Lactic
--- NOTE | 2022-08-11 09:50 | PC.NURSE ---
Patient received 2,700mL total of normal saline.
[2022-08-11] MEDS: VANCOMYCIN HCL 250 MG in DEXTROSE 5% 100 ML 200 MG IVPB (10:00)
--- NOTE | 2022-08-11 10:00 | ADMGEN ---
This patient, Shai Anderson, was admitted to IMU Room 206-01. Patient/family oriented to hospital policies and general routines including ID bracelet, bed and alarms, visiting hours, pain management, procedures, bathroom and other care routines, personal items, smoking policy, room service/diet, and visiting hours. Information on how to activate the Rapid Response Team has been discussed. Patient/Family are encouraged to report perceived risks to care and to ask questions if they do not understand what they are told or what they should do.
[2022-08-11 10:19] LABS: Lactic Acid 3.3 mmol/L (0.7-2.0)
--- NOTE | 2022-08-11 14:30 | PM.IMHP ---
H&P: HPI History of Present Illness Date/Time: 08/11/22 14:30 Chief Complaint: Urinary catheter problems. Narrative: This is an 87-year-old male with chronic urinary retention and indwelling Roberts catheter, coronary artery disease status post stent many years ago, chronic kidney disease, and anemia who presented to the emergency department via EMS from home for evaluation of urinary catheter problems. Per patient report he has had a Roberts catheter for about 10 years and he had is exchanged just yesterday at his urologist's office. Not long thereafter he noticed blood in the catheter and his urine output became increasingly bloody as the evening progressed to the point where it ?got stopped up.? Since that time he has had a full discomfort in the suprapubic region and he also endorses nausea, chills, and decreased appetite. He has not had a fever to his knowledge. He denies cold and flu symptoms, chest pain, shortness a breath, and vomiting. He has had some loose stools but no overt diarrhea. He was afebrile on arrival to the emergency department. Blood pressures have been running at the lower end of normal but have remained stable. Roberts catheter was exchanged in the ER and reports feeling quite a bit of relief once his catheter started to drain. His workup was significant for WBC of 19.9 and lactic acid of 4.4. Urine was positive for nitrates, leukocyte esterase, bacteria, and greater than 75 WBC and RBC. He is being admitted in this setting for IV antibiotics. Review of Systems Review of Systems: Twelve systems were reviewed and are negative except for as per HPI. [facility] Past Medical History Medical History Anxiety Benign prostatic hyperplasia with urinary retention Chronic anemia Chronic indwelling Roberts catheter Chronic kidney disease Coronary artery disease Depression Hyperlipidemia Hypertension Kidney stones MRSA nasal colonization Retroperitoneal abscess (05/2018) Surgical History Surgical History History of cardiac catheterization History of heart artery stent History of removal of cyst Left neck. Family History Family History Grandparent Family history of cardiovascular disease Cerebrovascular accident Mother Family history of pancreatic cancer Father Family history of pancreatic cancer Social History Social History (Updated 08/11/22 @ 21:42 by Lydia Wagner PA-C) Social History: Surrogate medical decision maker: Shayla, friend. Code status: Do not resuscitate. Smoking status: Never smoker Alcohol intake: never Substance use: never Substance use type: does not use Lack of Transportation: No Lack of Food: Never True Current Housing: I Have Housing Concerned About Future Housing: No Difficulty Paying Gas/Electric Bills: No Difficulty Paying for Meds: No Currently Unemployed: No Education: Master's Degree or Higher Difficulty w/ Childcare or Family Care: No Additional occupation/education comments: Retired. Spiritual care concerns: No Agree to blood products: Yes Meds Home Medications and Allergies Home Medications Medication Instructions Recorded Confirmed Type aspirin 81 mg tablet,delayed 81 mg PO DAILY #30 tabs 11/03/19 08/11/22 Rx release furosemide 20 mg tablet 20 mg PO QAM #90 tabs 04/27/22 08/11/22 Rx multivit with minerals-iron 18 1 tablet PO DAILY 08/11/22 08/11/22 History mg-folic ac 400 mcg-vit K 25 mcg tablet (Adults Multivitamin) mupirocin 2 % topical ointment 1 applic topical Q12H 08/11/22 08/11/22 History triamcinolone acetonide 0.1 % 1 applic topical Q12H 08/11/22 08/11/22 History topical cream Allergies Allergy/AdvReac Type Severity Reaction Status Date / Time potassium Allergy Mild Rash Verified 08/11/22 10:27 Vital Signs Vital Signs -
[2022-08-11] MEDS: TRIAMCINOLONE ACET 0.1% CREAM 15 GM TUBE 1 APPLIC TOPICAL (15:57)
[2022-08-11] MEDS: MUPIROCIN 2% OINT 22 GM TUBE 1 APPLIC TOPICAL ×2 (15:57→20:31)
[2022-08-11] MEDS: SODIUM CHLORIDE 0.9% IV 1,000 ML 100 ML IV CONT (15:57)
[2022-08-11] MEDS: cefTRIAXone 2 GM in SODIUM CHLORIDE 0.9% IV 100 ML 200 ML IVPB (20:30)
[2022-08-11] MEDS: TRIAMCINOLONE ACET 0.1% CREAM 80 GM TUBE 1 APPLIC TOPICAL (20:31)
[2022-08-12] VITALS (12 sets, daily range): BP systolic 90–111; BP diastolic 43–62; PULSE 77–93; RESP 16–20; TEMP 36.3–36.8; O2SAT 97–98
[2022-08-12 05:08] LABS: Basophils Percent Auto 0.3 % (0.2-1.2); Eosinophils Absolute Auto 0.6 K/mm3 (0-0.3); Eosinophils Percent Auto 3.9 % (0-4.4); Hematocrit 28.7 % (42.0-52.0); Hemoglobin 9.4 g/dL (14.0-18.0); Immature Granulocyte Absolute 0.08 K/mm3 (0.00-0.031); Immature Granulocyte Percent A 0.5 % (0-0.5); Lymphocytes Absolute Auto 1.37 K/mm3 (0.9-3.2); Lymphocytes Percent Auto 8.8 % (18.3-44.2); Mean Corpuscular HGB Conc 32.8 g/dl (32-36); Mean Corpuscular Volume 88.6 fl (80-100); Mean Platelet Volume 9.8 fl (7.4-10.4); Monocytes Absolute Auto 0.7 K/mm3 (0.1-0.6); Monocytes Percent Auto 4.7 % (2.6-8.5); Neutrophils Absolute Auto 12.8 K/mm3 (1.3-6.7); Neutrophils Percent Auto 81.8 % (45.5-73.1); Platelet Count Result 245 k/mm3 (150-375); Red Blood Count 3.24 M/mm3 (4.6-6.20); Red Cell Distribution Width 15.6 % (11.5-14.5); White Blood Count 15.6 K/mm3 (4.5-10.0)
[2022-08-12 05:34] LABS: Alanine Aminotransferase 20 U/L (6-50); Albumin Level 2.8 g/dL (3.5-5.1); Alkaline Phosphatase 70 U/L (38-126); Anion Gap 5 mmol/L (8-16); Aspartate Amino Transferase 27 U/L (17-59); Bilirubin,Total 0.3 mg/dL (0.2-1.3); Blood Urea Nitrogen 29 mg/dL (9-20); Calcium 7.4 mg/dL (8.4-10.2); Carbon Dioxide 20 mmol/L (22-30); Chloride 112 mmol/L (98-107); Estimated CRCL calculation 28 ml/min; Estimated Glomerular Filt Rate 34; Glucose 97 mg/dL (65-110); Magnesium 2.1 mg/dL (1.6-2.3); Potassium 4.3 mmol/L (3.4-5.0); Sodium 137 mmol/L (137-145)
[2022-08-12] MEDS: ASPIRIN 81 MG ENTERIC TABLET PO (09:34)
[2022-08-12] MEDS: MULTIVITAMINS /C LUTEIN (CENTRUM SILVER) TABLET *BKC 1 TAB PO (09:34)
[2022-08-12] MEDS: FUROSEMIDE 20 MG TABLET PO (09:34)
[2022-08-12] MEDS: TRIAMCINOLONE ACET 0.1% CREAM 80 GM TUBE 1 APPLIC TOPICAL ×2 (09:35→20:29)
[2022-08-12] MEDS: MUPIROCIN 2% OINT 22 GM TUBE 1 APPLIC TOPICAL ×2 (09:36→20:30)
--- NOTE | 2022-08-12 11:58 | PM.IMPN ---
Progress Note: A&P Assessment and Plan (1) Sepsis: Code(s): A41.9 - Sepsis, unspecified organism Status: Acute Assessment and Plan: Present on arrival with tachycardia, tachypnea, hypotension responsive to IV fluids, and lactic acidosis in the setting of a complicated urinary tract infection. Vital signs have improved. Repeat lactic acid level has improved but remains high (4.4 --> 3.3). Blood and urine cultures pending. (2) Complicated urinary tract infection: Code(s): N39.0 - Urinary tract infection, site not specified Status: Acute Assessment and Plan: Secondary to indwelling Roberts catheter. Continue empiric ceftriaxone and vancomycin, pending cultures. (3) Hematuria: Code(s): R31.9 - Hematuria, unspecified Status: Acute Assessment and Plan: Resolving with exchange of Roberts catheter. (4) Chronic kidney disease: Code(s): N18.9 - Chronic kidney disease, unspecified Status: Acute Assessment and Plan: Creatinine is stable on review of previous labs. (5) Chronic anemia: Code(s): D64.9 - Anemia, unspecified Status: Acute Assessment and Plan: Stable on review of previous labs. (6) Chronic stasis dermatitis: Code(s): I87.2 - Venous insufficiency (chronic) (peripheral) Status: Acute Assessment and Plan: Chronic stasis dermatitis of the lower legs bilaterally which she states is chronic. May be some component of fungal infection more proximally given satellite lesions. Cannot rule out cellulitis especially on the left where it is more warm and tender to palpation. Continue empiric ceftriaxone and vancomycin as above. Venous Doppler ultrasounds of the lower legs ordered to rule out DVT given tenderness to palpation the popliteal space. Wound nurse consulted for opinion and recommendations. Subjective Date/time seen: 08/12/22 11:58 No new complaints Exam Const: Other: Mildly ill-appearing male lying in the semi-Perez position in no acute distress. Weight: 90.3 kilograms. BMI: 35.0. HENMT: Other: Normocephalic, atraumatic. Nares pain bilaterally. Moist mucous membranes. Slightly hard of hearing. Eyes: Other: Pupils are reactive. Extraocular motions intact. Sclerae anicteric. Neck: Other: Supple. Resp: Other: Respirations are nonlabored. Lungs are clear to auscultation. Cardio: Other: Regular rate rhythm with S1-S2. GI: Other: Abdomen is soft and nondistended with positive bowel sounds. He is a bit tender to palpation in the suprapubic region. No guarding or rebound tenderness. No CVA tenderness. : Other: Roberts catheter draining cloudy yellow urine. There is darker gordon colored urine in the bag. Skin: Other: Warm and dry. Lower legs are shiny and erythematous with edema from the toes to the knees where he has some satellite erythema which almost looks fungal. There is a lesion on the left helix which he states is chronic. There is a small, scabbed circular lesion on the left upper arm. Neuro: Other: Alert. Cranial nerves 2-12 are grossly intact. No gross focal deficits to casual conversation. Extrem: Other: No cyanosis or clubbing. Legs lower extremity edema bilaterally. Possible cords on the left. He is tender to palpation in the popliteal region bilaterally. Equivocal Homans sign bilaterally. Psych: Other: Pleasant and cooperative with appropriate mood and affect. Objective Data Vital Signs Vital Signs: Vital Signs - 24 hr 08/11/22 12:00 08/11/22 12:00 08/11/22 12:00 Temperature 97.8 F Pulse Rate 102 H 88 Respiratory Rate 22 H Blood Pressure 113/60 Pulse Oximetry 93 Oxygen Delivery Room Air 08/11/22 14:00 08/11/22 16:00 08/11/22 16:00 Temperature 98.6 F Pulse Rate 82 84 Respiratory Rate 18 Blood Pressure 105/48 L Pulse Oximetry 96 Oxygen Delivery Room Air 08/11/22 16:00 08/11/22 18:00 08/11/22 20:12 Charla
[2022-08-12] MEDS: cefTRIAXone 2 GM in SODIUM CHLORIDE 0.9% IV 100 ML 200 ML IVPB (20:28)
[2022-08-13 04:00] VITALS: BP 130/71; PULSE 87; RESP 20; TEMP 36.2; O2SAT 98
[2022-08-13 05:28] LABS: Estimated CRCL calculation 28 ml/min; Estimated Glomerular Filt Rate 34
[2022-08-13 08:00] VITALS: BP 107/55; PULSE 85; RESP 20; TEMP 36.6; O2SAT 98
[2022-08-13] MEDS: TRIAMCINOLONE ACET 0.1% CREAM 80 GM TUBE 1 APPLIC TOPICAL ×2 (08:08→21:06)
[2022-08-13] MEDS: MULTIVITAMINS /C LUTEIN (CENTRUM SILVER) TABLET *BKC 1 TAB PO (08:08)
[2022-08-13] MEDS: ASPIRIN 81 MG ENTERIC TABLET PO (08:09)
[2022-08-13] MEDS: MUPIROCIN 2% OINT 22 GM TUBE 1 APPLIC TOPICAL ×2 (08:09→21:06)
[2022-08-13] MEDS: FUROSEMIDE 20 MG TABLET PO (08:09)
[2022-08-13 09:11] LABS: Basophils Percent Auto 0.2 % (0.2-1.2); Hematocrit 29.3 % (42.0-52.0); Hemoglobin 9.3 g/dL (14.0-18.0); Immature Granulocyte Absolute 0.03 K/mm3 (0.00-0.031); Immature Granulocyte Percent A 0.2 % (0-0.5); Lymphocytes Absolute Auto 1.32 K/mm3 (0.9-3.2); Lymphocytes Percent Auto 10.3 % (18.3-44.2); Mean Corpuscular HGB Conc 31.7 g/dl (32-36); Mean Corpuscular Hemoglobin 29.2 pg (26-34); Mean Corpuscular Volume 92.1 fl (80-100); Mean Platelet Volume 9.6 fl (7.4-10.4); Monocytes Absolute Auto 0.8 K/mm3 (0.1-0.6); Monocytes Percent Auto 6.4 % (2.6-8.5); Neutrophils Absolute Auto 9.6 K/mm3 (1.3-6.7); Neutrophils Percent Auto 74.9 % (45.5-73.1); Platelet Count Result 261 k/mm3 (150-375); Red Blood Count 3.18 M/mm3 (4.6-6.20); Red Cell Distribution Width 15.5 % (11.5-14.5); White Blood Count 12.8 K/mm3 (4.5-10.0)
[2022-08-13 12:15] VITALS: BP 126/64; PULSE 80; RESP 24; TEMP 36.2; O2SAT 100
--- NOTE | 2022-08-13 13:37 | PM.IMPN ---
Progress Note: A&P Assessment and Plan (1) Sepsis: Code(s): A41.9 - Sepsis, unspecified organism Status: Acute Assessment and Plan: Present on arrival with tachycardia, tachypnea, hypotension responsive to IV fluids, and lactic acidosis in the setting of a complicated urinary tract infection. Vital signs have improved. Repeat lactic acid level has improved but remains high (4.4 --> 3.3). Blood and urine cultures pending. (2) Complicated urinary tract infection: Code(s): N39.0 - Urinary tract infection, site not specified Status: Acute Assessment and Plan: Secondary to indwelling Roberts catheter. Continue empiric ceftriaxone and vancomycin, pending cultures. (3) Hematuria: Code(s): R31.9 - Hematuria, unspecified Status: Acute Assessment and Plan: Resolving with exchange of Roberts catheter. (4) Chronic kidney disease: Code(s): N18.9 - Chronic kidney disease, unspecified Status: Acute Assessment and Plan: Creatinine is stable on review of previous labs. (5) Chronic anemia: Code(s): D64.9 - Anemia, unspecified Status: Acute Assessment and Plan: Stable on review of previous labs. (6) Chronic stasis dermatitis: Code(s): I87.2 - Venous insufficiency (chronic) (peripheral) Status: Acute Assessment and Plan: Chronic stasis dermatitis of the lower legs bilaterally which she states is chronic. May be some component of fungal infection more proximally given satellite lesions. Cannot rule out cellulitis especially on the left where it is more warm and tender to palpation. Continue empiric ceftriaxone and vancomycin as above. Venous Doppler ultrasounds of the lower legs ordered to rule out DVT given tenderness to palpation the popliteal space. Wound nurse consulted for opinion and recommendations. (7) Bacteremia: Code(s): R78.81 - Bacteremia Status: Acute Assessment and Plan: Continue IV antibiotics and await culture results Subjective Date/time seen: 08/13/22 13:37 No new complaints, feeling better Exam Const: Other: Mildly ill-appearing male lying in the semi-Perez position in no acute distress. Weight: 90.3 kilograms. BMI: 35.0. HENMT: Other: Normocephalic, atraumatic. Nares pain bilaterally. Moist mucous membranes. Slightly hard of hearing. Eyes: Other: Pupils are reactive. Extraocular motions intact. Sclerae anicteric. Neck: Other: Supple. Resp: Other: Respirations are nonlabored. Lungs are clear to auscultation. Cardio: Other: Regular rate rhythm with S1-S2. GI: Other: Abdomen is soft and nondistended with positive bowel sounds. He is a bit tender to palpation in the suprapubic region. No guarding or rebound tenderness. No CVA tenderness. : Other: Roberts catheter draining cloudy yellow urine. There is darker gordon colored urine in the bag. Skin: Other: Warm and dry. Lower legs are shiny and erythematous with edema from the toes to the knees where he has some satellite erythema which almost looks fungal. There is a lesion on the left helix which he states is chronic. There is a small, scabbed circular lesion on the left upper arm. Neuro: Other: Alert. Cranial nerves 2-12 are grossly intact. No gross focal deficits to casual conversation. Extrem: Other: No cyanosis or clubbing. Legs lower extremity edema bilaterally. Possible cords on the left. He is tender to palpation in the popliteal region bilaterally. Equivocal Homans sign bilaterally. Psych: Other: Pleasant and cooperative with appropriate mood and affect. Objective Data Vital Signs Vital Signs: Vital Signs - 24 hr 08/12/22 14:00 08/12/22 16:00 08/12/22 16:00 Temperature 98.2 F Pulse Rate 81 79 93 Respiratory Rate 16 Blood Pressure 102/47 L Pulse Oximetry 97 Oxygen Delivery 08/12/22 20:58 08/12/22 20:00 08/13/22 04:00 Temperature 97.3 F L 97.1 F L Pu
[2022-08-13 14:00] VITALS: BP 117/58; PULSE 83; RESP 22; TEMP 36.4; O2SAT 100
[2022-08-13] MEDS: SODIUM CHLORIDE 0.9% IV 100 ML 10 ML (21:13)
[2022-08-13] MEDS: cefTRIAXone 2 GM in SODIUM CHLORIDE 0.9% IV 100 ML 200 ML IVPB (21:22)
[2022-08-13 22:00] VITALS: BP 130/64; PULSE 80; RESP 16; TEMP 36.3; O2SAT 98
[2022-08-14 06:00] VITALS: BP 129/63; PULSE 78; RESP 20; TEMP 36.8; O2SAT 99
[2022-08-14 08:34] LABS: Vancomycin Trough 10.6 ug/mL (10.0-20.0)
[2022-08-14] MEDS: ASPIRIN 81 MG ENTERIC TABLET PO (08:44)
[2022-08-14] MEDS: MUPIROCIN 2% OINT 22 GM TUBE 1 APPLIC TOPICAL (08:45)
[2022-08-14] MEDS: FUROSEMIDE 20 MG TABLET PO (08:45)
[2022-08-14] MEDS: MULTIVITAMINS /C LUTEIN (CENTRUM SILVER) TABLET *BKC 1 TAB PO (08:45)
[2022-08-14] MEDS: TRIAMCINOLONE ACET 0.1% CREAM 80 GM TUBE 1 APPLIC TOPICAL (08:45)
--- NOTE | 2022-08-14 11:54 | PM.DS ---
DS: Admitting Diagnosis Discharge Date August 14, 2022 Admitting Diagnosis Sepsis and UTI, chronic Roberts catheter DS: Discharge Diagnosis Discharge Diagnosis (1) Sepsis: Code(s): A41.9 - Sepsis, unspecified organism Status: Acute Assessment and Plan: Present on arrival with tachycardia, tachypnea, hypotension responsive to IV fluids, and lactic acidosis in the setting of a complicated urinary tract infection. Vital signs have improved. Repeat lactic acid level has improved but remains high (4.4 --> 3.3). Blood and urine cultures pending. (2) Complicated urinary tract infection: Code(s): N39.0 - Urinary tract infection, site not specified Status: Acute Assessment and Plan: Secondary to indwelling Roberts catheter. Continue empiric ceftriaxone and vancomycin, pending cultures. (3) Hematuria: Code(s): R31.9 - Hematuria, unspecified Status: Acute Assessment and Plan: Resolving with exchange of Roberts catheter. (4) Chronic kidney disease: Code(s): N18.9 - Chronic kidney disease, unspecified Status: Acute Assessment and Plan: Creatinine is stable on review of previous labs. (5) Chronic anemia: Code(s): D64.9 - Anemia, unspecified Status: Acute Assessment and Plan: Stable on review of previous labs. (6) Chronic stasis dermatitis: Code(s): I87.2 - Venous insufficiency (chronic) (peripheral) Status: Acute Assessment and Plan: Chronic stasis dermatitis of the lower legs bilaterally which she states is chronic. May be some component of fungal infection more proximally given satellite lesions. Cannot rule out cellulitis especially on the left where it is more warm and tender to palpation. Continue empiric ceftriaxone and vancomycin as above. Venous Doppler ultrasounds of the lower legs ordered to rule out DVT given tenderness to palpation the popliteal space. Wound nurse consulted for opinion and recommendations. (7) Bacteremia: Code(s): R78.81 - Bacteremia Status: Acute Assessment and Plan: Continue IV antibiotics and await culture results DS: Summary Hospital Course Hospital Course: Patient is an 87-year-old gentleman with chronic Roberts came in with sepsis and likely related to his UTI. Cultures grew mixed nichelle. He improved with Rocephin. Will continue Omnicef on discharge. Also to note patient had 1 of 2 bottles that grew contamination on his blood cultures. Vancomycin will be stopped on discharge. Otherwise he is doing well and can be discharged. He has chronic lower extremity stasis dermatitis with hypertrophic changes only to follow-up with primary and have wound care set up. Time Spent with Patient Time attestation: Total time spent providing and/or coordinating discharge services: Exam Const: Other: Mildly ill-appearing male lying in the semi-Perez position in no acute distress. Weight: 90.3 kilograms. BMI: 35.0. HENMT: Other: Normocephalic, atraumatic. Nares pain bilaterally. Moist mucous membranes. Slightly hard of hearing. Eyes: Other: Pupils are reactive. Extraocular motions intact. Sclerae anicteric. Neck: Other: Supple. Resp: Other: Respirations are nonlabored. Lungs are clear to auscultation. Cardio: Other: Regular rate rhythm with S1-S2. GI: Other: Abdomen is soft and nondistended with positive bowel sounds. He is a bit tender to palpation in the suprapubic region. No guarding or rebound tenderness. No CVA tenderness. : Other: Roberts catheter draining cloudy yellow urine. There is darker gordon colored urine in the bag. Skin: Other: Warm and dry. Lower legs are shiny and erythematous with edema from the toes to the knees where he has some satellite erythema which almost looks fungal. There is a lesion on the left helix which he states is chronic. There is a small, scabbed circular lesion on the left upper arm. Neuro: Other
== END 2022-08-14 13:25 | disposition home or self-care (01) | DRG 698 ==
LOC: ANHED 06:39 → ANHIMU 08:55 → ANH3MEDSUR 08-13 12:10
PROVIDERS: Admitting Provider Internal Medicine; Emergency Provider Preventive Medicine Aerospace Medicine; PCP Physician Assistant; Visit Provider Chiropractor
DX: T83.511A Infection and inflammatory reaction due to indwelling urethral catheter, initial encounter (principal); A41.9 Sepsis, unspecified organism; E87.21 Acute metabolic acidosis; N39.0 Urinary tract infection, site not specified; T83.018A Breakdown (mechanical) of other urinary catheter, initial encounter; R31.9 Hematuria, unspecified; I87.2 Venous insufficiency (chronic) (peripheral); I12.9 Hypertensive chronic kidney disease with stage 1 through stage 4 chronic kidney disease, or unspecified chronic kidney disease; N18.9 Chronic kidney disease, unspecified; D64.9 Anemia, unspecified; Z20.822 Contact with and (suspected) exposure to COVID-19; E78.5 Hyperlipidemia, unspecified; F41.9 Anxiety disorder, unspecified; I25.10 Atherosclerotic heart disease of native coronary artery without angina pectoris; N40.1 Benign prostatic hyperplasia with lower urinary tract symptoms; R33.9 Retention of urine, unspecified; Z95.5 Presence of coronary angioplasty implant and graft; Z66 Do not resuscitate; Z79.82 Long term (current) use of aspirin
CPT/HCPCS: 36415; 51702; 71045; 74176; 80053; 80202; 81001; 82565; 83605; 83735; 85025; 85610; 87040; 87077; 87086; 87088; 87636; 93005; 93970; 96361; 96365; 96367; 97161; 97165; 99285; A9270; G0378; J0696; J3370; J7030